=== PATIENT | male | born 1970 | race Caucasian/White ===

== ENCOUNTER 2017-10-01 21:22 | Emergency (ER) | payer OTHER ==
[~2017-10-01] VITALS: Ht 165.1 cm; Wt 75.0 kg
[~2017-10-01 21:22] MED LIST: GLUCTAB PO; IBUP600 PO; OMEP20CA5 PO; SUMA100T2 PO; TOPI50TA4 PO
[2017-10-01 21:25] VITALS: BP 160/91; PULSE 95; RESP 16; TEMP 96.6
[2017-10-01] MEDS ORDERED: ATOR20TA15 PO (22:46)
[2017-10-01] MEDS ORDERED: LOSA50TA PO (22:46)
[2017-10-01] MEDS ORDERED: TOPA50TA7 PO (22:46)
[2017-10-01] MEDS ORDERED: METF1000 PO (22:46)
--- NOTE | 2017-10-01 22:47 | RADRPT ---
EXAM DATE/TIME: 10/01/2017 22:33 [place] COMPARISON: No previous studies available for comparison. INDICATIONS : Left foot pain. No trauma. MEDICAL HISTORY : None. SURGICAL HISTORY : None. ENCOUNTER: Initial ACUITY: 1 day PAIN SCORE: 8/10 LOCATION: Left foot. FINDINGS: Three view examination of the left foot demonstrates no soft tissue swelling, dislocation, or fractur e. The tarsal bones appear intact. The interphalangeal and metatarsophalangeal joints are intact. The calcaneus is intact. Bony mineralization is normal. CONCLUSION: No acute fracture. Jelani Castro MD on October 01, 2017 at 22:45 Board Certified Radiologist. This report was verified electronically.
[2017-10-01] MEDS ORDERED: PRIL20TA2 PO (22:48)
[2017-10-01] MEDS ORDERED: DICL75TA PO (23:23)
--- NOTE | 2017-10-01 23:29 | PD ---
HPI Chief Complaint: Pain: Acute or Chronic Time Seen by Provider: 23:11 Travel History International Travel<30 days: No Contact w/Intl Traveler<30days: No Traveled to known affect area: No History of Present Illness HPI 46-year-old white male presents to the department complaints of left foot pain. He states that he's had a prior Achilles tendon rupture on this foot. He states that he had gone walking around [employer] this afternoon. He states he had sat down for pizza but when he went to get up he noticed pain in his foot. He has progressively gotten much worse over the last few hours. States that it is so severe he has difficulty ambulating. He denies any direct trauma. No numbness, tingling or weakness. No alleviating factors. Exacerbated by walking. PFSH Past Medical History Autoimmune Disease: No Blood Disorders: No Cancer: No Cardiovascular Problems: No Diabetes: Yes Patient Takes Glucophage: Yes Diminished Hearing: No Endocrine: Yes Gastrointestinal Disorders: Yes (GERD) GERD: Yes Glaucoma: No Genitourinary: No Headaches: Yes Hepatitis: No Hiatal Hernia: No Hypertension: No Immune Disorder: No Musculoskeletal: Yes (TRIGGER FINGER, CERVICAL FUSION) Neurologic: Yes (WEATHER INDUCED MIGRAINES) Psychiatric: No Respiratory: No Immunizations Current: Yes Migraines: Yes Thyroid Disease: No Tetanus Vaccination: > 5 Years Influenza Vaccination: Yes Past Surgical History Abdominal Surgery: Yes (APPENDECTOMY) AICD: No Appendectomy: Yes Body Medical Devices: CERVICAL HARDWARE Cardiac Surgery: No Ear Surgery: No Endocrine Surgery: No Eye Surgery: No Genitourinary Surgery: No Gynecologic Surgery: No Joint Replacement: No Neurologic Surgery: Yes (CERVICAL FUSION) Oral Surgery: No Pacemaker: No Thoracic Surgery: No Other Surgery: Yes Social History Alcohol Use: Yes (OCC.) Tobacco Use: Yes (CHEWS TOBACCO/ E CIG) Substance Use: No Allergies-Medications (Allergen,Severity, Reaction): Coded Allergies: codeine (Unverified Allergy, Severe, ANGER, 10/01/17) penicillin G (Unverified Allergy, Severe, HIVES/RASH, 10/01/17) thiopental (Unverified Allergy, Severe, LOST HEARING, 10/01/17) acetaminophen (Unverified Adverse Reaction, Intermediate, ANGER, 10/01/17) hydrocodone (Unverified Adverse Reaction, Intermediate, ANGER, 10/01/17) Reported Meds & Prescriptions Reported Meds & Active Scripts Active Diclofenac Sodium DR (Diclofenac Sodium) 75 Mg Tabdr 75 Mg PO BID Reported Prilosec (Omeprazole Magnesium) 20 Mg Tab 20 Tab PO DAILY Losartan (Losartan Potassium) 50 Mg Tab 50 Mg PO DAILY Topamax (Topiramate) 50 Mg Tab 50 Mg PO DAILY Atorvastatin (Atorvastatin Calcium) 20 Mg Tab 20 Mg PO HS Metformin (Metformin HCl) 1,000 Mg Tab 1,000 Mg PO BIDPC Review of Systems Except as stated in HPI: all other systems reviewed are Neg Physical Exam Narrative GENERAL: This is a well-nourished, well-developed patient, in no apparent distress. SKIN: No rashes, ecchymoses or lesions. Warm and dry. HEAD: Atraumatic. Normocephalic. EYES: PERRL, EOMI, no discharge or injection. No scleral icterus. EARS: Clear NOSE: Nasal turbinates appear normal. THROAT: Mucosa pink and moist. Airway patent. NECK: Trachea midline. supple, moves head freely. LUNGS: Clear to auscultation. CV: Regular in rhythm. ABDOMEN: Soft nontender. EXT: No clubbing cyanosis or edema. Examination of left lower extremity reveals tenderness across the proximal forefoot. The skin is intact. He has intact sensation with good distal pulses. Normal temperature. Normal color. No pain in the toes, heel, ankle or knee. Data Data Last Documented VS Vital Signs Date Time Temp Pulse Resp B/P (MAP) Pulse Ox O2 Delivery O2 Flow Rate FiO2 10/01/17 21:25 96.6 95 16 160/91 (114) Room Air Orders Orders Foot, Complete (Eas2sst) (10/01/17 ) Ice/Cold Pack (10/01/17 23:19) Splint Or Brace Apply/Monitor (10/01/17 23:19) Crutches (10/01/17 23:19) Ibuprofen (Motrin) (10/01/17 23:30) Ed Discharge Order (10/01/17 23:21) MDM Medical Decision Making Medical Screen Exam Complete: Yes Emergency Medical Condition: Yes Medical Record Reviewed: Yes Interpretation(s) Last 24 hours Impressions Foot X-Ray 10/01/17 0000 Signed Impressions: Service Date/Time: Sunday, October 01, 2017 22:33 - CONCLUSION: No acute fracture. Jelani Castro MD Differential Diagnosis MDM: High Differential diagnoses: Fracture, sprain, strain, dislocation, contusion, neurovascular injury Narrative Course X-ray is negative for bony injury. Patient's given Mahesh wrap, crutches, ice pack , Motrin 600 mg. This is left foot sprain Diagnosis Primary Impression: left foot sprain Patient Instructions: General Instructions Departure Forms: Tests/Procedures, Work Release Special Instructions: no work 2 days. Additional Instructions: Rest. Elevation. Ice packs for the next 3 days. Mahesh wrap and crutches. No weight-bearing and then progress to weight-bearing as tolerated. Medications as directed Follow-up with an orthopedist or your doctor in one week. Return to the ER if any problems Med/Other Pt SpecificInfo: Prescription(s) given Scripts Diclofenac Sodium DR (Diclofenac Sodium DR) 75 Mg Tabdr 75 MG PO BID, #20 TAB 0 Refills Prov: Rasheed Hernández MD 10/01/17 Disposition: 01 DISCHARGE HOME Condition: Stable Jose Alvarado Oct 01, 2017 23:29
[2017-10-01] MEDS ORDERED: IBUPROFEN 600 MG TAB PO ONE (23:30)
== END 2017-10-02 | disposition home or self-care (01) ==
LOC: NEPD 21:22
DX: S93.602A Unspecified sprain of left foot, initial encounter (principal); X58.XXXA Exposure to other specified factors, initial encounter; F17.220 Nicotine dependence, chewing tobacco, uncomplicated; F17.290 Nicotine dependence, other tobacco product, uncomplicated; E11.9 Type 2 diabetes mellitus without complications; K21.9 Gastro-esophageal reflux disease without esophagitis
CPT/HCPCS: 73630; 99283; E0113